=== PATIENT | male | born 1940 | race African-American/Black ===

== ENCOUNTER 2019-05-14 09:19 | Emergency (ER) | payer MEDICARE, OTHER, MEDICAID ==
[~2019-05-14] VITALS: Ht 177.8 cm; Wt 99.8 kg
--- NOTE | 2019-05-14 09:27 | NUR ---
Patient BIB [id number] for c/o slip and fall from an unknown facility, EMS failed to recall any information whatsoever. Patient reported that he slipped on water and fell on his right side and is complaining of pain right shoulder, and RLE. Respiratory even and unlabored, no cough no sob. No cardiovascular distress noted, all pulses palpable denies any cp.
--- NOTE | 2019-05-14 09:33 | NUR ---
ERMD at bedside for MSE
--- NOTE | 2019-05-14 09:33 | NUR ---
Serge RN at bedside translating in [place] for Dr. Tripp
--- NOTE | 2019-05-14 09:58 | NUR ---
Patient transported to Radiology in stable condition.
--- NOTE | 2019-05-14 10:20 | NUR ---
Patient back in room from Radiology
--- NOTE | 2019-05-14 11:21 | NUR ---
Patient discharged to home in stable conditon. Written and verbal after care instructions given. Patient verbalizes understanding of instructions. Patient ambulated with stable gait.
[2019-05-14 11:23] VITALS: BP 155/98
== END 2019-05-14 11:23 | disposition home or self-care (01) ==
LOC: ER 09:19
DX: S42.91XA Fracture of right shoulder girdle, part unspecified, initial encounter for closed fracture (principal); M25.561 Pain in right knee; M25.552 Pain in left hip; W01.0XXA Fall on same level from slipping, tripping and stumbling without subsequent striking against object, initial encounter; Y93.89 Activity, other specified; Y92.89 Other specified places as the place of occurrence of the external cause; Y99.8 Other external cause status
CPT/HCPCS: 72170; 73030; 73502; A4663